=== PATIENT | male | born 1990 | race Caucasian/White ===

== ENCOUNTER → 2020-06-24 | Outpatient (CLI) | payer BC ==
--- NOTE | 2020-06-29 11:39 | ECHOF ---
Referral Reason:Z86.79 personal hx of other diseases of the MEASUREMENTS -------- HEIGHT: 180.3 cm WEIGHT: 86.2 kg BP: 119/63 RVIDd: 3.1 cm (< 3.3) IVSd: 1.0 cm (0.6 - 1.1) LVIDd: 5.2 cm (3.9 - 5.3) LVPWd: 0.8 cm (0.6 - 1.1) IVSs: 1.5 cm LVIDs: 3.5 cm LVPWs: 1.5 cm LA Diam: 3.7 cm (2.7 - 3.8) LAESV Index (A-L): 28.87 ml/m Ao Diam: 3.5 cm (2.0 - 3.7) AV Cusp: 2.5 cm (1.5 - 2.6) MV EXCURSION: 24.295 mm (> 18.000) MV EF SLOPE: 139 mm/s (70 - 150) EPSS: 0.5 cm MV E Thierry: 0.97 m/s MV DecT: 354 ms MV A Thierry: 0.43 m/s MV E/A Ratio: 2.26 RAP: 5.00 mmHg RVSP: 20.36 mmHg FINDINGS -------- Resting bradycardia (HR<60bpm). This was a technically excellent study. The left ventricular size is normal. Left ventricular wall thickness is normal. Overall left vent ricular systolic function is normal with, an EF between 60 - 65 %. The right ventricle is normal in size. Normal LA size by volume 22+/-6 ml/m2. The right atrium is normal in size. Interatrial and interventricular septum intact. The aortic valve is trileaflet and appears structurally normal. Trace to mild aortic regurgitation. There is trace to mild mitral regurgitation. Mild tricuspid regurgitation present. Right ventricular systolic pressure is normal at < 35 mmHg. Trace/mild (physiologic) pulmonic regurgitation. The aortic root size is normal. Normal inferior vena cava with normal inspiratory collapse consistent with estimated right atrial pre ssure of 5 mmHg. There is no pericardial effusion. CONCLUSIONS -------- 1. The left ventricular size is normal. 2. Left ventricular wall thickness is normal. 3. Overall left ventricular systolic function is normal with, an EF between 60 - 65 %. 4. Trace to mild aortic regurgitation. 5. There is trace to mild mitral regurgitation. 6. Mild tricuspid regurgitation present. 7. Trace/mild (physiologic) pulmonic regurgitation. 8. There is no pericardial effusion. DUSTLESS OPERATOR: Davina Cabral RDCS
== END | disposition home or self-care (01) ==
LOC: RADECHMAIN 16:26
PROVIDERS: ATTEND Family Medicine
DX: I08.3 Combined rheumatic disorders of mitral, aortic and tricuspid valves (principal); I37.1 Nonrheumatic pulmonary valve insufficiency; Z86.79 Personal history of other diseases of the circulatory system
CPT/HCPCS: 93306